=== PATIENT | female | born 1985 | race Two or more races ===

== ENCOUNTER 2021-01-27 12:32 | Emergency (ER) | payer OTHER ==
[~2021-01-27] VITALS: Ht 172.7 cm; Wt 79.4 kg
[2021-01-27] MEDS ORDERED: cloNIDine HCL 0.1 MG TAB PO ONE (12:45)
[2021-01-27] MEDS ORDERED: LORazepam 0.5 MG TAB PO ONE (12:45)
[2021-01-27 13:30] LABS: Basophils # (auto) 0.1 10 ^3/uL (0-0.2); Basophils % (auto) 0.7 % (0.0-2.0); Eosinophils # (auto) 0 10 ^3/uL (0-0.8); Eosinophils % (auto) 0.3 % (0.0-7.0); Hemoglobin 14.9 g/dL (12.2-16.2); Lymphocytes # (auto) 1.8 10 ^3/uL (0.4-5.4); Lymphocytes % (auto) 20.5 % (10.0-50.0); Mean Corpuscular Hemoglobin 31.7 pg (28.0-32.0); Mean Corpuscular Hgb Conc. 33.8 g/dL (32.0-36.0); Mean Corpuscular Volume 93.7 fL (80.0-100.0); Monocytes # (auto) 0.4 10 ^3/uL (0-1.3); Monocytes % (auto) 4.9 % (0.0-12.0); Neutrophils # (auto) 6.5 10 ^3/uL (1.6-8.6); Neutrophils % (auto) 73.6 % (37.0-80.0); Nucleated Red Blood Cells % 0.1 %; Red Blood Cells 4.69 10^6/uL (4.0-5.20); Red Cell Distribution Width 12.7 % (11.8-14.3); White Blood Cell 8.8 10^3/uL (4.4-10.8)
[2021-01-27 13:42] LABS: Albumin 3.8 g/dL (3.4-5.0); Anion Gap 7 (5-15); Blood Urea Nitrogen 8 mg/dL (7-18); Calcium 8.8 mg/dL (8.5-10.1); Carbon Dioxide 25 mmol/L (21-32); Chloride 106 mmol/L (98-107); Glucose 94 mg/dL (74-106); Magnesium 2.1 mg/dL (1.6-2.6); Potassium 3.9 mmol/L (3.5-5.1); Sodium 138 mmol/L (136-145)
[2021-01-27 13:53] LABS: Alanine Aminotransferase 40 U/L (13-56); Alkaline Phosphatase 68 U/L (45-117); Aspartate Aminotransferase 15 U/L (15-37); BUN/Creatinine Ratio 12.5; Bilirubin, Total 0.5 mg/dL (0.2-1.0); GFR African American 137 mL/min; GFR Non-African American 113 mL/min; Total Protein 7.6 g/dL (6.4-8.2)
[2021-01-27 14:50] LABS: Urine Bacteria FEW /hpf (None Seen); Urine Blood Negative /uL (Negative); Urine Specific Gravity 1.006 (1.001-1.035); Urine WBC <1 /hpf (0 - 5)
[2021-01-27 15:26] VITALS: BP 120/78
== END 2021-01-27 15:31 | disposition home or self-care (01) ==
LOC: ER 12:33
DX: I16.0 Hypertensive urgency (principal); Z90.49 Acquired absence of other specified parts of digestive tract
CPT/HCPCS: 36415; 70450; 71046; 80053; 81001; 83735; 84443; 84484; 85025; 93005

== ENCOUNTER 2022-11-23 13:20 | Inpatient (IN) | payer OTHER ==
[~2022-11-23] VITALS: Ht 175.3 cm; Wt 97.6 kg
[2022-11-23] MEDS ORDERED: NITROGLYCERIN 0.4 MG SL TAB SL ONE (13:30)
[2022-11-23] MEDS ORDERED: SODIUM CHLORIDE 0.9% 1,000 ML IV ONE (13:30)
[2022-11-23 14:00] VITALS: PULSE 119; RESP 15; O2SAT 98
[2022-11-23 14:01] LABS: Basophils # (auto) 0 10 ^3/uL (0-0.2); Basophils % (auto) 0.5 % (0.0-2.0); Eosinophils # (auto) 0 10 ^3/uL (0-0.8); Eosinophils % (auto) 0.1 % (0.0-7.0); Hematocrit 41.3 % (36.0-46.0); Hemoglobin 14.1 g/dL (12.2-16.2); Lymphocytes # (auto) 1.8 10 ^3/uL (0.4-5.4); Lymphocytes % (auto) 19.2 % (10.0-50.0); Mean Corpuscular Hemoglobin 31.5 pg (28.0-32.0); Mean Corpuscular Hgb Conc. 34.2 g/dL (32.0-36.0); Mean Corpuscular Volume 92.2 fL (80.0-100.0); Monocytes # (auto) 0.4 10 ^3/uL (0-1.3); Monocytes % (auto) 4.4 % (0.0-12.0); Neutrophils # (auto) 7.2 10 ^3/uL (1.6-8.6); Neutrophils % (auto) 75.8 % (37.0-80.0); Nucleated Red Blood Cells % 0.1 %; Red Blood Cells 4.48 10^6/uL (4.0-5.20); Red Cell Distribution Width 13.1 % (11.8-14.3); White Blood Cell 9.5 10^3/uL (4.4-10.8)
[2022-11-23 14:04] LABS: Albumin 3.9 g/dL (3.4-5.0); Calcium 8.9 mg/dL (8.5-10.1); Magnesium 2.4 mg/dL (1.6-2.6); Potassium 3.9 mmol/L (3.5-5.1)
[2022-11-23 14:08] LABS: BUN/Creatinine Ratio 12.9 (10.0-20.0); Bilirubin, Total 0.4 mg/dL (0.2-1.0); Total Protein 7.2 g/dL (6.4-8.2)
[2022-11-23] MEDS ORDERED: LABETALOL HCL 5 MG/ML 4ML SYRINGE IV ONE ×3 (14:15→19:00)
[2022-11-23 15:15] LABS: Urine Bacteria NONE SEEN /hpf (None Seen); Urine Blood Negative /uL (Negative); Urine Budding Yeast MODERATE /hpf (None Seen); Urine Specific Gravity 1.007 (1.001-1.035); Urine WBC 13 /hpf (0 - 5)
[2022-11-23 15:29] LABS: Alcohol, Urine < 3.0 mg/dL (0-10); Amphetamine Screen, Urine NEGATIVE (NEGATIVE); Barbiturate Scree,Urine NEGATIVE (NEGATIVE); Benzodiazephine Screen, Urine NEGATIVE (NEGATIVE); Cannabinoid Screen, Urine NEGATIVE (NEGATIVE); Cocaine Screen, Urine NEGATIVE (NEGATIVE); Opiate Scree,Urine NEGATIVE (NEGATIVE); Phencyclidine Screen, Urine NEGATIVE (NEGATIVE)
[2022-11-23] MEDS ORDERED: LORazepam 2MG/ML-1ML VIAL IV ONE (19:15)
[2022-11-23 20:54] VITALS: PULSE 96; RESP 14; O2SAT 99
[2022-11-23] MEDS ORDERED: HYDROcodone-ACET 5/325MG TAB PO PRN (21:45)
[2022-11-23] MEDS ORDERED: SODIUM CHLORIDE 0.9% 1,000 ML IV SCH (21:45)
[2022-11-23] MEDS ORDERED: DOCUSATE SOD 100 MG CAP PO PRN (21:45)
[2022-11-23] MEDS ORDERED: LORazepam 2MG/ML-1ML VIAL IV PRN (21:45)
[2022-11-23] MEDS ORDERED: ONDANSETRON HCL 4 MG/2 ML VIAL IV PRN (21:45)
[2022-11-23] MEDS: METOPROLOL TARTRATE 25 MG TAB PO SCH (22:19)
[2022-11-23] MEDS ORDERED: NITROGLYCERIN 0.4 MG SL TAB SL PRN (23:30)
[2022-11-23] MEDS ORDERED: MORPHINE SULFATE INJ 2 MG/ml SYRG IV PRN (23:30)
[2022-11-24 06:25] LABS: Basophils # (auto) 0 10 ^3/uL (0-0.2); Basophils % (auto) 0.4 % (0.0-2.0); Eosinophils # (auto) 0.1 10 ^3/uL (0-0.8); Eosinophils % (auto) 0.6 % (0.0-7.0); Hemoglobin 13.1 g/dL (12.2-16.2); Lymphocytes % (auto) 22.4 % (10.0-50.0); Mean Corpuscular Hemoglobin 31.6 pg (28.0-32.0); Mean Corpuscular Hgb Conc. 34.5 g/dL (32.0-36.0); Mean Corpuscular Volume 91.7 fL (80.0-100.0); Monocytes # (auto) 0.6 10 ^3/uL (0-1.3); Monocytes % (auto) 7.1 % (0.0-12.0); Neutrophils # (auto) 6.1 10 ^3/uL (1.6-8.6); Neutrophils % (auto) 69.5 % (37.0-80.0); Red Blood Cells 4.14 10^6/uL (4.0-5.20); Red Cell Distribution Width 13.1 % (11.8-14.3); White Blood Cell 8.7 10^3/uL (4.4-10.8)
[2022-11-24 06:44] LABS: Potassium 3.5 mmol/L (3.5-5.1)
[2022-11-24 06:48] LABS: Albumin 3.4 g/dL (3.4-5.0); BUN/Creatinine Ratio 13.4 (10.0-20.0); Calcium 8.3 mg/dL (8.5-10.1)
[2022-11-24 07:13] LABS: Bilirubin, Total 0.4 mg/dL (0.2-1.0); Total Protein 6.6 g/dL (6.4-8.2)
[2022-11-24 08:42] VITALS: PULSE 99; RESP 20; O2SAT 98
[2022-11-24 09:36] LABS: Cholesterol 144 mg/dL (< 200); HDL Cholesterol 48 mg/dL (40-59); LDL Cholesterol 84 mg/dL (< 100); Triglycerides 94 mg/dL (< 150)
[2022-11-24] MEDS: METOPROLOL TARTRATE 25 MG TAB PO SCH ×2 (09:44→22:58)
[2022-11-24] MEDS: ASPirin 81 mg TAB PO SCH (10:44)
[2022-11-24] MEDS: LISINOPRIL 10 MG TAB PO SCH (10:45)
[2022-11-24] MEDS: SOD CHL 0.45% 1,000 ML IV SCH ×2 (10:46→20:15)
[2022-11-24 19:00] VITALS: PULSE 68; RESP 16; O2SAT 96
[2022-11-24] MEDS ORDERED: LORazepam 2MG/ML-1ML VIAL IV PRN (22:15)
[2022-11-24 23:38] VITALS: BP 179/124; RESP 22; TEMP 99; O2SAT 98
[2022-11-25] VITALS (8 sets, daily range): BP systolic 114–179; BP diastolic 64–124; PULSE 58–118; RESP 14–22; TEMP 97.7–99; O2SAT 93–99
[2022-11-25] MEDS ORDERED: THYR30TA PO (01:45)
[2022-11-25] MEDS: SOD CHL 0.45% 1,000 ML IV SCH ×2 (06:15→16:15)
[2022-11-25] MEDS: METOPROLOL TARTRATE 25 MG TAB PO SCH (09:37)
[2022-11-25] MEDS: ASPirin 81 mg TAB PO SCH (09:37)
[2022-11-25] MEDS: LISINOPRIL 10 MG TAB PO SCH (09:37)
[2022-11-25] MEDS: hydrALAZINE HCL 20 MG/ML VL IV PRN (12:39)
[2022-11-25] MEDS: ACETAMINOPHEN 325 MG TAB PO PRN (17:07)
[2022-11-25] MEDS ORDERED: amLODIPine BESYLATE 5 MG TAB PO ONE (19:15)
[2022-11-25] MEDS ORDERED: LEVOTHYROXINE SODIUM 25 MCG TAB PO ONE (19:30)
[2022-11-25] MEDS: METOPROLOL TARTRATE 50 MG TAB PO SCH (21:39)
[2022-11-26] VITALS (8 sets, daily range): BP systolic 111–153; BP diastolic 73–115; PULSE 65–98; RESP 12–20; TEMP 97.7–98.6; O2SAT 98–100
[2022-11-26] MEDS ORDERED: amLODIPine BESYLATE 5 MG TAB PO SCH (10:00)
[2022-11-26] MEDS: ASPirin 81 mg TAB PO SCH (10:11)
[2022-11-26] MEDS: METOPROLOL TARTRATE 50 MG TAB PO SCH ×2 (10:12→21:34)
[2022-11-26] MEDS: LISINOPRIL 10 MG TAB PO SCH ×2 (10:13→18:29)
[2022-11-26] MEDS: hydrALAZINE HCL 20 MG/ML VL IV PRN (12:14)
[2022-11-26] MEDS: ACETAMINOPHEN 325 MG TAB PO PRN ×2 (14:13→22:41)
[2022-11-26] MEDS ORDERED: hydrALAZINE HCL 25 MG TAB PO PRN (16:30)
[2022-11-26] MEDS: amLODIPine BESYLATE 5 MG TAB PO SCH (18:28)
[2022-11-26] MEDS: hydrALAZINE HCL 25 MG TAB PO SCH (21:35)
[2022-11-27 04:26] VITALS: BP 93/56; PULSE 62; RESP 18; TEMP 98.2; O2SAT 97
[2022-11-27 05:38] VITALS: BP 105/68; PULSE 67; RESP 18; TEMP 98.2; O2SAT 97
[2022-11-27] MEDS: hydrALAZINE HCL 25 MG TAB PO SCH ×2 (05:40→14:00)
[2022-11-27 06:19] LABS: Basophils # (auto) 0.1 10 ^3/uL (0-0.2); Basophils % (auto) 0.8 % (0.0-2.0); Eosinophils # (auto) 0.1 10 ^3/uL (0-0.8); Eosinophils % (auto) 1.1 % (0.0-7.0); Hematocrit 41.8 % (36.0-46.0); Hemoglobin 14.2 g/dL (12.2-16.2); Lymphocytes # (auto) 2.4 10 ^3/uL (0.4-5.4); Lymphocytes % (auto) 27.5 % (10.0-50.0); Mean Corpuscular Hemoglobin 31.5 pg (28.0-32.0); Mean Corpuscular Hgb Conc. 34.1 g/dL (32.0-36.0); Mean Corpuscular Volume 92.4 fL (80.0-100.0); Monocytes # (auto) 0.6 10 ^3/uL (0-1.3); Monocytes % (auto) 6.2 % (0.0-12.0); Neutrophils # (auto) 5.7 10 ^3/uL (1.6-8.6); Neutrophils % (auto) 64.4 % (37.0-80.0); Nucleated Red Blood Cells % 0.1 %; Red Blood Cells 4.53 10^6/uL (4.0-5.20); Red Cell Distribution Width 13.2 % (11.8-14.3); White Blood Cell 8.9 10^3/uL (4.4-10.8)
[2022-11-27 09:00] VITALS: BP 117/81; PULSE 68; RESP 20; TEMP 98.2; O2SAT 98
[2022-11-27] MEDS: amLODIPine BESYLATE 5 MG TAB PO SCH (09:57)
[2022-11-27] MEDS: METOPROLOL TARTRATE 50 MG TAB PO SCH (09:58)
[2022-11-27] MEDS: ACETAMINOPHEN 325 MG TAB PO PRN (09:59)
[2022-11-27] MEDS: LISINOPRIL 10 MG TAB PO SCH (10:00)
[2022-11-27 10:18] LABS: Calcium 8.5 mg/dL (8.5-10.1); Potassium 3.8 mmol/L (3.5-5.1)
[2022-11-27 10:21] LABS: BUN/Creatinine Ratio 19.5 (10.0-20.0)
[2022-11-27 13:00] VITALS: BP 107/67; PULSE 72; RESP 20; TEMP 98.7; O2SAT 97
[2022-11-27 16:27] VITALS: BP 108/74; PULSE 80; RESP 20; TEMP 98.8; O2SAT 97
== END 2022-11-27 18:35 | disposition home or self-care (01) | DRG 69 ==
LOC: ER 13:20 → EDBD 13:20 → TELE 23:22 → TELE-WESTW 11-24 22:14 → WEST WING 11-26 23:22
PROVIDERS: ADMIT Internal Medicine; ATTEND Student in an Organized Health Care Education/Training Program
DX: G45.9 Transient cerebral ischemic attack, unspecified (principal); I16.1 Hypertensive emergency; E11.9 Type 2 diabetes mellitus without complications; E03.9 Hypothyroidism, unspecified; F41.0 Panic disorder [episodic paroxysmal anxiety]; E66.9 Obesity, unspecified; F41.1 Generalized anxiety disorder; R00.0 Tachycardia, unspecified; I10 Essential (primary) hypertension; Z68.32 Body mass index [BMI] 32.0-32.9, adult; Z83.3 Family history of diabetes mellitus
CPT/HCPCS: 36415; 70450; 70551; 71045; 80048; 80053; 80061; 80307; 81001; 82550; 83036; 83605; 83735; 83880; 84439; 84443; 84484; 84702; 85025; 85379; 93005; 93306; 95819; 96361; 96374; 96375; 96376; 99291; G0378; J3490